=== PATIENT | male | born 1960 | race Caucasian/White ===

== ENCOUNTER 2021-04-23 13:21 | Emergency (ER) | payer SELFPAY ==
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
--- NOTE | ~2021-04-23 | CT_ITS ---
EXAMINATION: CT HEAD WITHOUT CONTRAST CT CERVICAL SPINE WITHOUT CONTRAST CLINICAL INFORMATION: Altered mental status. COMPARISON: There are no prior studies available for comparison. TECHNIQUE: Multidetector CT imaging of the head and cervical spine was performed without the use of intravenous contrast. Coronal and sagittal reformatted images were generated at the technologist workstation. This CT examination was performed using dose optimization techniques as appropriate, variously including the following: *Automated exposure control *Adjustment of mA and/or kV according to patient size (this includes techniques or standardized protocols for targeted exams where dose is matched to indication/reason for exam; i.e. extremities or head) *Use of iterative reconstruction technique DLP: 1256 mGy-cm. FINDINGS: CT head: There are serpiginous hyperdense areas along the cortices in the bilateral temporal lobes and in the right parietal lobe. 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 There is symmetric intense mineralization of the basal ganglia bilaterally. There are a few calcifications in the left keyon. There are areas of gliosis in the anterior temporal lobes bilaterally, and there is mild prominence of the anterior bodies and temporal horns of the lateral ventricles. There is no evidence of acute intracranial hemorrhage or territorial infarction. No abnormal mass-effect or midline shift is seen. No extra-axial fluid collections are identified. Overall, there is mild commensurate prominence of the ventricles and sulci consistent with volume loss. There are no acute osseous findings. There has been a right lens extraction. There are calcifications of the cavernous internal carotid arteries bilaterally. There is a relatively well-defined soft tissue mass in the left external auditory canal. There is minimal cerumen in the right external auditory canal. There is mucoperiosteal thickening in the bilateral maxillary sinuses and there is a fluid level in the right sphenoid sinus. The mastoid air cells appear well-aerated. CT cervical spine: There is straightening of the normal cervical lordosis which may be due to positioning. There is narrowing of intervertebral disc height with degenerative endplate changes at C4-C5. There is narrowing of the neural foramina bilaterally at C4-C5. Vertebral body heights are maintained and no fractures are demonstrated. The lateral masses of C1 and C2 are normally aligned and the dens is intact. The paravertebral structures are unremarkable. The visualized lung apices are well-aerated. CT/CT cervical spine wo con IMPRESSION: 1. 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 There are areas of gliosis in the bilateral anterior temporal lobes. There are a few small calcifications in the left aspect of the keyon. There is symmetric increased mineralization in the basal ganglia bilaterally. These findings are nonspecific, but may be consistent with an underlying metabolic process. The gliotic changes in the temporal lobes are nonspecific and may be consistent with sequelae of ischemia or trauma. 2. There are no acute intracranial bleeds or territorial infarcts. No intracranial masses are demonstrated. 3. There is a well-defined soft tissue mass in the left external auditory canal which could be clinically assessed. 4. There are no acute fractures or subluxations in the cervical spine. There is spondylosis and foraminal narrowing.
[2021-04-23 13:48] VITALS: BP 110/60; BMI 31.8
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
[2021-04-23 14:01] VITALS: BP 103/66; PULSE 105; RESP 14; TEMP 35.9; O2SAT 95
[2021-04-23 14:28] LABS: MANUAL DIFF FLAG NO
[2021-04-23 14:29] LABS: Basophils Absolute Auto 0.1 X10*3/uL (0.0-0.2); Basophils Percent Auto 0.5 % (0-2); Eosinophils Absolute Auto 0.1 X10*3/uL (0.0-0.4); Hemoglobin 15.4 g/dl (14.0-18.0); Imm Gran Abs Auto 0.04 X10*3/uL (0.00-0.03); Imm Gran Pct Auto 0.4 % (0.0-0.4); Lymphocytes Absolute Auto 3.2 X10*3/uL (1.2-4.9); Lymphocytes Percent Auto 31.1 % (20-40); Mean Corpuscular Hemoglobin 29.8 pg (27.0-33.0); Mean Corpuscular Volume 85.3 fL (80.0-98.0); Mean Platelet Volume 9.7 fL (9.4-12.4); Monocytes Percent Auto 9.9 % (2-11); Neutrophils Absolute Auto 5.8 x10*3/uL (2.0-8.3); Neutrophils Percent Auto 57.1 % (45-73); Platelet Count 283 X10*3/uL (160-400); Red Blood Count 5.16 X10*6/uL (4.60-5.80); Red Cell Distribution Width 12.5 % (11.0-16.0); White Blood Count 10.2 X10*3/uL (4.8-10.8)
[2021-04-23 14:41] LABS: Ethanol < 10 mg/dL
[2021-04-23 14:48] LABS: Glucose, Whole Blood 345 mg/dL (60-115)
[2021-04-23 14:52] LABS: Alanine Aminotransferase 24 U/L (0-40); Albumin Level 4.2 g/dL (3.5-5.0); Alkaline Phosphatase 77 U/L (39-117); Anion Gap 16 (12-20); Aspartate Amino Transferase 32 U/L (5-37); Bilirubin Direct 0.3 mg/dL (0.0-0.5); Blood Urea Nitrogen 10 mg/dL (9-16); Carbon Dioxide 25 mmol/L (22-29); Chloride 95 mmol/L (96-108); Creatinine Clr Calc Pharmacy 82.9; Estimated Glomerular Filt Rate > 60; Glucose Random 358 mg/dL (60-115); Lipase 13 U/L (8-78); Magnesium 1.3 mg/dL (1.6-2.6); Potassium 4.6 mmol/L (3.3-5.1); Sodium 131 mmol/L (135-145); Total Protein 6.8 g/dL (6.5-8.0)
--- NOTE | 2021-04-23 14:55 | ECG_ITS ---
Test Reason : WEAK Blood Pressure : / mmHG Vent. Rate : 103 BPM Atrial Rate : 103 BPM P-R Int : 168 ms QRS Dur : 096 ms QT Int : 374 ms P-R-T Axes : 060 106 124 degrees QTc Int : 489 ms Sinus tachycardia Rightward axis Possible Inferior infarct , age undetermined ST & T wave abnormality, consider anterolateral ischemia Abnormal ECG No previous ECGs available Referred By: Natalie Vega Electronically Signed By:Tyler Romero
[2021-04-23 15:10] LABS: COVID-19 Test Negative (Negative); IDNOW Serial# 9DD0AD1C
[2021-04-23] MEDS: Magnesium Sulfate/H2O 2 GM/50 ML PIGGYBACK IV (15:28)
--- NOTE | 2021-04-23 16:27 | PC.NURSE ---
pt $$ locked in security safe.
[2021-04-23 17:11] LABS: D Dimer High Sensitivity 1048 NG/ML
[2021-04-23 17:21] LABS: Troponin-I High Sensitivity < 3.5 ng/L (<3.5-35.0)
[2021-04-23 18:49] VITALS: BP 112/75; PULSE 97; RESP 14
[2021-04-23] MEDS: 0.9 % Sodium Chloride 1,000 ML 999 ML IVCONT (19:37)
[2021-04-23] MEDS: Insulin Regular, Human 100 UNIT/ML 3 ML VIAL 10 UNIT IVPUSH (19:37)
[2021-04-23] MEDS: iohexoL 350 MG/ML 100 ML INFUS..BTL IV (19:43)
[2021-04-23 21:07] LABS: Glucose, Whole Blood 468 mg/dL (60-115)
[2021-04-23 21:24] LABS: Glucose, Whole Blood 380 mg/dL (60-115)
[2021-04-23 21:24] LABS: Glucose, Whole Blood 293 mg/dL (60-115)
== END 2021-04-23 21:51 | disposition home or self-care (01) ==
PROVIDERS: Emergency Medicine; Emergency Provider Emergency Medicine
DX: S22.31XA Fracture of one rib, right side, initial encounter for closed fracture (principal); V49.88XA Car occupant (driver) (passenger) injured in other specified transport accidents, initial encounter; R00.0 Tachycardia, unspecified; E11.65 Type 2 diabetes mellitus with hyperglycemia; E83.42 Hypomagnesemia; F03.90 Unspecified dementia, unspecified severity, without behavioral disturbance, psychotic disturbance, mood disturbance, and anxiety; Z20.822 Contact with and (suspected) exposure to COVID-19; Y93.89 Activity, other specified; Y92.410 Unspecified street and highway as the place of occurrence of the external cause; Y99.9 Unspecified external cause status
CPT/HCPCS: 36415; 70450; 71250; 71275; 72125; 74176; 80048; 80076; 82077; 82947; 83690; 83735; 84484; 85025; 85379; 87635; 93005; 96361; 96365; 96366; 96375; 99284; J3475; Q9967